=== PATIENT | female | born 1950 | race Caucasian/White ===

== ENCOUNTER → 2017-04-18 | Outpatient (CLI) | payer MEDICARE, OTHER ==
--- NOTE | 2017-04-18 19:23 | RADRPT ---
PROCEDURE: XR Pelvis and Hips. CLINICAL INDICATION: Pelvic pain. Bilateral hip pain. TECHNIQUE: Five views. Frontal pelvis. Frontal and lateral right hip. Frontal and lateral left hip. COMPARISON: 05/21/2016. FINDINGS: There is no fracture or dislocation. The soft tissues are normal. There are mild degenerative changes of both hips with small osteophytes noted. There is no joint spa ce narrowing or deformity. There is no lytic or blastic lesion. There is no radiopaque foreign body. IMPRESSION: 1. Mild degenerative changes of the hips. 2. No change from 05/21/2016. 3. No acute abnormality. RPTAT: QQ .Dagoberto Warren MD, MD Date Time Electronically viewed and signed by .Dagoberto Warren MD, MD on 04/18/2017 19:23 .R/
== END | disposition home or self-care (01) ==
LOC: HKI 11:00
PROVIDERS: ATTEND Orthopaedic Surgery
DX: M25.551 Pain in right hip (principal); M70.61 Trochanteric bursitis, right hip
CPT/HCPCS: 20610; 73523; G0463; J1030